=== PATIENT | female | born 1940 | race Two or more races ===

== ENCOUNTER 2021-10-19 13:59 | Emergency (ER) | payer OTHER ==
[~2021-10-19] VITALS: Ht 152.4 cm; Wt 66.7 kg
== END 2021-10-19 18:00 | disposition home or self-care (01) ==
LOC: ER 13:59
DX: R10.32 Left lower quadrant pain (principal); Z88.8 Allergy status to other drugs, medicaments and biological substances; I10 Essential (primary) hypertension

== ENCOUNTER 2021-12-18 11:39 | Outpatient (CLI) | payer OTHER | END 2021-12-18 11:46 | disposition home or self-care (01) | LOC: LAB 11:39 | PROVIDERS: ATTEND Internal Medicine Cardiovascular Disease | DX: Z20.822 Contact with and (suspected) exposure to COVID-19 (principal) ==

== ENCOUNTER 2021-12-29 11:57 | Outpatient (CLI) | payer OTHER | END 2021-12-29 11:58 | disposition home or self-care (01) | LOC: LAB 11:57 | PROVIDERS: ATTEND Internal Medicine Cardiovascular Disease | DX: Z20.822 Contact with and (suspected) exposure to COVID-19 (principal) ==

== ENCOUNTER 2022-03-10 10:45 | Outpatient (CLI) | payer OTHER | END 2022-03-10 10:46 | disposition home or self-care (01) | LOC: NUCLEAR 10:45 | PROVIDERS: ATTEND Internal Medicine Cardiovascular Disease | DX: I10 Essential (primary) hypertension (principal); Z88.5 Allergy status to narcotic agent; Z88.8 Allergy status to other drugs, medicaments and biological substances; Z88.6 Allergy status to analgesic agent ==